=== PATIENT | female | born 1950 | race Caucasian/White ===

== ENCOUNTER 2017-01-11 11:02 | Observation (INO) | payer SELFPAY ==
[2017-01-11] MEDS ORDERED: NS 0.9% 1000 ML* 1,000 ML IV ONE ×2 (11:46→14:31)
[2017-01-11] MEDS ORDERED: Ondansetron INJ* 2 MG/ML VIAL IV ONE ×2 (11:46→14:31)
[2017-01-11] MEDS ORDERED: HYDROmorphone INJ* 2 MG/ML CARPUJECT SYRINGE IV SLOW PU ONE ×2 (11:46→14:31)
[2017-01-11 12:12] LABS: Hematocrit 40 % (35-47); Hemoglobin 13.5 g/dl (12.0-16.0); Mean Corpuscular HGB Conc 34 g/dl (31-36); Mean Corpuscular Hemoglobin 32 pg (27-31); Mean Corpuscular Volume 93 fL (80-97); Mean Platelet Volume 7 um3 (7.4-10.4); Red Blood Count 4.29 10^6/ul (4.0-5.4); Red Cell Distribution Width 13 % (10.5-15); White Blood Count 13.2 10^3/ul (3.5-10.8)
[2017-01-11 12:30] LABS: Albumin 4.3 g/dL (3.2-5.2); BUN/Creatinine Ratio 19.7 (8-20); Calcium 9.8 mg/dL (8.6-10.3); EGFR African American 115.6 (>60); EGFR Non-African American 89.9 (>60); Globulin 2.8 g/dL (2-4); Potassium 3.5 mmol/L (3.5-5.0); Total Protein 7.1 g/dL (6.4-8.9)
[2017-01-11] MEDS ORDERED: Diazepam SYRINGE* 5 MG/ML 10 ML SYRINGE (50 MG total) IV ONE (13:45)
[2017-01-11] MEDS ORDERED: Valproic Acid IV(*) 100 MG/ML 5 ML VIAL (500 MG) IVPB ONE (14:30)
[2017-01-11] MEDS ORDERED: VALPROIC ACID 1000 MG IV - ED ONCE IVPB ONE ×2 (15:00)
--- NOTE | 2017-01-11 15:12 | RAD ---
INDICATION: Headaches COMPARISON: March 08, 2009 TECHNIQUE: Noncontrast axial source images were acquired from the skull base to the vertex. FINDINGS: Ventricles/sulci: The ventricles and cisterns are normal in size and configuration for age. Brain parenchyma: There is no focal parenchymal finding, evidence of intracranial mass, or intracranial mass effect. Intracranial hemorrhage:None. Extra-axial spaces: There are no abnormal extra axial fluid collections or evidence of extra-axial mass. Calvarium: There is no calvarial fracture or other acute calvarial abnormality. There may be a small frontal osteoma. Scalp: There is no evidence of scalp or extracalvarial soft tissue abnormality. Paranasal sinuses/mastoid: The paranasal sinuses and mastoid air cells are clear. Other: None. IMPRESSION: No acute intracranial findings.
--- NOTE | 2017-01-11 15:49 | RAD ---
HISTORY: Low saturation COMPARISONS: March 10, 2009 VIEWS: 1: frontal portable view of the chest at 3:34 PM FINDINGS: LINES AND TUBES: None. CARDIOMEDIASTINAL SILHOUETTE: The cardiomediastinal silhouette is normal for portable technique. PLEURA: The costophrenic angles are sharp. No pleural abnormalities are noted. LUNG PARENCHYMA: The lungs are clear. ABDOMEN: The upper abdomen is clear. There is no subphrenic gas. BONES AND SOFT TISSUES: No bone or soft tissue abnormalities are noted. IMPRESSION: NO ACTIVE CARDIOPULMONARY DISEASE.
[2017-01-11] MEDS ORDERED: Ondansetron INJ* 2 MG/ML VIAL IV PRN (16:38)
[2017-01-11] MEDS ORDERED: Metoclopramide IV* 5 MG/ML 2 ML VIAL IV SLOW PU ONE (16:57)
[2017-01-11] MEDS ORDERED: NS 0.9% w/ 40 Meq KCL 1000 ML* 1,000 ML IV SCH (17:00)
--- NOTE | 2017-01-11 17:18 | ED ---
Jonnie Zavala Alfonso scribed for Lawrence Gibson MD on 01/11/17 at 1200 . Headache - HPI Summary HPI Summary: This patient is a 66 year old F presenting to [facility] accompanied by her family with a chief complaint of a gradually worsening migraine that began yesterday morning when she woke up. She has a 23 year history of migraines with her last one this summer. The patient rates the pain 9/10 in severity. Symptoms aggravated by bright light and recently stress (family illness). Symptoms alleviated by nothing. Has taken Advil and Zofran [employer] with no relief. Patient reports dizziness (resolved), N/V, and dehydration. Patient denies fever, chills , cough, rhinorrhea, rash, and diarrhea. - History Of Current Complaint Chief Complaint: EDHeadache Stated Complaint: VOMITING/HEADACHE Time Seen by Provider: 01/11/17 11:38 Hx Obtained From: Patient Onset/Duration: Gradual Onset - Beginning the previous night, Still Present, Worse Since Initially Headache Was: Moderate Currently Pain Is: Severe Timing: Constant Character: Migraine Aggravating Factor: Bright Lights, Other - Recent stress Allevating Factors: Nothing Associated Signs And Symptoms: Other (Noted In Comments) - dizziness (resolved) , N/V, and dehydration. Patient denies fever, chills, cough, rhinorrhea, rash, and diarrhea. - Allergies/Home Medications Allergies/Adverse Reactions: Allergies Allergy/AdvReac Type Severity Reaction Status Date / Time Prochlorperazine AdvReac See Comment Verified 01/11/17 17:05 [From Compazine] Home Medications: Home Medications Multivitamins/Minerals TAB* [Theragran/minerals TAB*] 1 tab PO DAILY 01/11/17 [ History Confirmed 01/11/17] PMH/Surg Hx/FS Hx/Imm Hx Cardiovascular History: Denies: Hx Coronary Artery Disease, Hx Hypercholesterolemia, Hx Hypertension Neurological History: Reports: Hx Migraine Denies: Hx CVA Infectious Disease History: Yes Infectious Disease History: Denies: Traveled Outside the [place] in Last 30 Days - Family History Known Family History: Positive: Other - Brain tumor and dementia - Social History Occupation: Employed Full-time Alcohol Use: Occasionally Hx Substance Use: No Substance Use Type: Reports: None Hx Tobacco Use: No Smoking Status (MU): Never Smoked Tobacco Review of Systems Constitutional: Other - dehydration Negative: Fever, Chills Negative: Nasal Discharge Negative: Cough Positive: Vomiting, Nausea. Negative: Abdominal Pain, Diarrhea Positive: Other Negative: Rash Neurological: Other - Dizziness (resolved), migraine headache All Other Systems Reviewed And Are Negative: Yes Physical Exam Triage Information Reviewed: Yes Vital Signs On Initial Exam: Initial Vitals Temp Pulse Resp BP Pulse Ox 97.4 F 65 19 134/69 100 01/11/17 11:03 01/11/17 11:03 01/11/17 11:03 01/11/17 11:03 01/11/17 11:03 Vital Signs Reviewed: Yes Appearance: Positive: Ill-Appearing - nauseated Skin: Positive: Warm, Skin Color Reflects Adequate Perfusion Head/Face: Positive: Normal Head/Face Inspection Eyes: Positive: EOMI, BRITTANY ENT: Positive: Normal ENT inspection Neck: Positive: Supple. Negative: Nuchal Rigidity Respiratory/Lung Sounds: Positive: Clear to Auscultation, Breath Sounds Present Cardiovascular: Positive: Normal, RRR. Negative: Murmur Abdomen Description: Positive: Nontender Neurological: Positive: Sensory/Motor Intact, Alert, Oriented to Person Place, Time, CN Intact II-III, Finger to Nose - nml, Speech Normal - Addison Coma Scale Best Eye Response: 4 - Spontaneous Best Motor Response: 6 - Obeys Commands Best Verbal Response: 5 - Oriented Diagnostics - Vital Signs Vital Signs Temp Pulse Resp BP Pulse Ox 01/11/17 11:03 97.4 F 65 19 134/69 100 - Laboratory Result Diagrams: 01/11/17 11:55 01/11/17 11:55 Lab Statement: Any lab studies that have been ordered have been reviewed, and results considered in the medical decision making process. - CT CXR CT Interpretation Completed By: Radiologist - No active cardiopulmonary disease ED physician has reviewed this radiology report and agrees - EKG 15:39 Cardiac Rate: NL EKG Rhythm: Sinus Rhythm - NSR at 72 BPM EKG Interpretation: NML MD, QRS, QT, No STEMI Re-Evaluation - Re-Evaluation First Eval Re-Evaluation Time: 13:15 Change: Improved Comment: She rates the pain 2/10. She is consuming ice chips. She feels much better and wants to go home. Second Eval Re-Evaluation Time: 14:39 Change: Worse Comment: the patient reports 2/10 headache but nausea worse again. Will give depacon, more dilaudid and zofran. hydration. Headache Course/Dx - Course Course Of Treatment: 66 yr old with migraine type headache, intractable nausea and vomiting. Plan to admit to hospitalists and consult by neurology, DR Vasquez pending. - Diagnoses Provider Diagnoses: Status migrainosus - Physician Notifications Discussed Care Of Patient With: Jessica Vasquez Time Discussed With Above Provider: 15:33 Instructed by Provider To: Other - I consulted Dr. Vasquez (Neurologist) who agrees to examine the pt in the ED. Discharge - Discharge Plan Condition: Fair Disposition: ADMITTED TO [facility] Referrals: Senait Medellin MD [Primary Care Provider] - Consult Consult: 15:[address] Redding (Hospitalist) who agreed to admit the pt. The documentation as recorded by the Jonnie liu Alfonso accurately reflects the service I personally performed and the decisions made by me, Lawrence Gibson MD.
[2017-01-11] MEDS ORDERED: diPHENhydraMINE IV* 50 MG/ML 1 ml VIAL (BENADRYL) ONE (19:46)
[2017-01-11] MEDS: diPHENhydraMINE IV* 50 MG in NS 0.9% 50 ML* 50 ML IVPB ONE ×2 (19:59→23:08)
[2017-01-11] MEDS ORDERED: diPHENhydraMINE IV* 50 MG in NS 0.9% 50 ML* 50 ML IVPB ONE (21:00)
[2017-01-11] MEDS: Heparin VIAL(*) 5000 UNITS/ML VIAL (FIVE THOUSAND) SUBCUT SCH (21:19)
--- NOTE | 2017-01-11 21:33 | CONS ---
NEUROLOGY CONSULTATION: DATE OF CONSULT: 01/11/17 LOCATION: The patient is in the emergency department. REQUESTING PHYSICIAN: Dr. Gibson. REASON FOR CONSULT: Migraine headache. HISTORY OF PRESENT ILLNESS: Liv Rowan is a 66-year-old woman with a history of migraines, who is otherwise healthy and takes no prescription medications, who presented to the emergency department today after a migraine, which began 2 nights ago. She has been here visiting her daughter, who is an inpatient for the last week or so, and began having a low-grade headache on Saturday night. Yesterday, she stayed home and could not come to the hospital to visit her daughter because of the headache, which was accompanied by photophobia. She has also had some vertigo on and off with this migraine headache, which is atypical for her migraines. Today, she became nauseated and started vomiting and so they presented to the emergency department for further treatment. She has been taking some ibuprofen and Tylenol at home, which has helped intermittently with the headache but has not made it go away completely. The last time she had a headache like this, she was in [facility] over the summer and required a visit to the hospital at that time as well for treatment. She used to see Dr. Yu several years back for her migraines, but then she started taking a supplement called Protandim, which she indicates significantly improved her migraines to the point where she gets them rarely now. However, she has been under stress with her daughter being hospitalized and probably has not been drinking as much as usual and feels this is likely the reason for this migraine. Dr. Gibson gave her Dilaudid 1 mg x2 as well as Zofran, first 8 mg and then 4 mg. She has also received Valium 2 mg in addition to 2 L of normal saline and then 1000 mg load of valproic acid. She now reports that her headache is a 2/10 but the nausea is still debilitating and she continues to have dry heaves. She reports that Toradol in the past has cause increased nausea and she had a dystonic reaction when given COMPAZINE in the past. PAST MEDICAL HISTORY: Migraine headaches. HOME MEDICATIONS: 1. Multivitamin. 2. Protandim supplement. 3. Vitamin D. 4. Vitamin B. ALLERGIES: COMPAZINE causes dystonic reaction. FAMILY HISTORY: There is a family history of stroke and diabetes. SOCIAL HISTORY: She lives in [place]. She is a nonsmoker. She has 2 adopted daughters. REVIEW OF SYSTEMS: She denies any recent fevers, coughs, new joint pains, skin rashes, change in bowel habits. PHYSICAL EXAM: Vital Signs: Temperature 97.4, blood pressure 134/64, heart rate 69, and oxygen saturation is 98% on room air when I was in the room. They did tell me that on several occasions, she had gone down into the 70s when she would begin to fall asleep, but with encouragement taking deep breaths, she would come back up into the normal range and a chest x-ray was negative. On general examination, she is lying in a dark room with her sunglasses on and appears uncomfortable. Her heart is in regular rate and rhythm with no murmurs , rubs, or gallops. Lungs are clear to auscultation bilaterally. There are no carotid bruits. Her skin is intact. There is no joint swelling or erythema. On neurologic examination, she appears tired but fully oriented. Her speech is fluent without dysarthria or aphasia. Cranial nerve testing: Pupils are equal , round and reactive but miotic from 2 to 1.5 mm bilaterally. Her versions are full without nystagmus. Cuello are full to confrontation bilaterally. Facial sensation and musculature is full and symmetric. Hearing is intact to voice. The palate elevates symmetrically and the tongue is midline. On motor examination, she has normal strength proximally and distally in the upper and lower extremities with no pronator drift. Sensation is intact to light touch. I was unable to complete the remainder of the neurologic exam as with these maneuvers, she became acutely nauseated and began to dry heave. DIAGNOSTIC STUDIES/LAB DATA: Her CBC shows an elevated white count of 13.2 with 90% neutrophils and otherwise overall unremarkable. Her coagulation studies are normal. Her CMP was normal aside from a nonfasting glucose of 123. Noncontrast brain CT was obtained and personally reviewed and was unremarkable. IMPRESSION AND PLAN: Liv Rowan is a 66-year-old woman with a history of episodic migraine headaches, who presents with a 2-plus day migraine associated with photophobia, nausea, and vomiting. Her pain is under relatively good control at this point, but she continues to have significant nausea and dry heaving. Although she reports an allergy to COMPAZINE, this does not preclude the use of metoclopramide and I contacted Dr. Roy, who has admitted her on observation status and advised to order 10 mg of IV metoclopramide as well as IV diphenhydramine to try to get her nausea under control. If this is not effective, then she can have another dose of Zofran. I would not use Toradol at this point because her headache is under relatively good control and she reports increased nausea with this medication. If you need further assistance from Neurology, Dr. Joseph Devi, is taking over the service [facility] and will care about the patient as well. [id number]/[facility] #: [id number] MTDD
[2017-01-12] MEDS: Acetaminophen TAB* 325 MG PO PRN ×2 (00:09→10:27)
[2017-01-12 00:28] LABS: Urine Bilirubin Negative (Negative); Urine Glucose 1+(50 mg/dL) (Negative); Urine Nitrite Negative (Negative)
--- NOTE | 2017-01-12 02:00 | HP ---
CC: Dr. Sherri Isbell at [facility], phone number [phone] [facility] HISTORY AND PHYSICAL: DATE OF ADMISSION: 01/11/17 TIME OF EVALUATION: 04:30 p.m. PRIMARY CARE PROVIDER: Dr. Sherri Isbell. CHIEF COMPLAINT: Headache. HISTORY OF PRESENT ILLNESS: Ms. Rowan is a 66-year-old lady with a past medical history of migrai rylie, who presented to the emergency room with complaints of headache, nausea, and vomiting. The patient states that in the past she used to have frequent episodes of migraine, but these are spo radic now and usually associated with a trip or another stressful situation. She had 1 episode in [facility] when she traveled to [facility] and this is the second time she has migraine this year. She is vis iting her daughter. She lives in [place] and just came to [place] 3 days ago to visit her daughter. She states that the pain is frontal, radiating to the back of her head, was a 9/10 intensity, and was associated with nausea and vomiting. She did not bring any of her medications with her at this time . So, she came to the emergency room for further treatment. She denies fever, chills. The headache is associated with photophobia and during our interview the patient requested to keep the lights in the room off. PAST MEDICAL HISTORY: Migraines. PAST SURGICAL HISTORY: 1. The patient had hemorrhagic ovarian cyst surgery. 2. Lysis of adhesions. MEDICATION LIST: She takes only [id number] vitamins as outpatient. ALLERGIES: With COMPAZINE the patient had dystonic reaction. FAMILY HISTORY: The patient's father of a brain tumor at age 42. SOCIAL HISTORY: No history of tobacco, alcohol or drug use. REVIEW OF SYSTEMS: A 14-point review of systems was performed and all other pertinent negatives and positives findings are in the HPI. PHYSICAL EXAMINATION GENERAL: The patient is a pleasant lady, lying in the ED stretcher in no acute distress. She is wea ring sunglasses in a dark room. VITAL SIGNS: Temperature 97.4, heart rate is 74, respiratory rate is 18, oxygen saturation is 95% on room air, blood pressure is 134/64. CVS: Normal S1, S2. Regular rate and rhythm. CHEST: Breath sounds present bilaterally with no added sounds. ABDOMEN: Soft. Bowel sounds are present. EXTREMITIES: No edema. NEURO: She is alert and oriented x3. Speech is normal. There are no focal neuro deficits. LABORATORY AND IMAGING DATA: The patient had a CBC with WBC of 13.2, hemoglobin of 13.5, hematocrit of 40, platelets of 295 and 96% neutrophils. INR is 0.92. D- dimer was less than 200. Chemistry s howed a sodium of 148, potassium 3.5, chloride of 105, bicarbonate of 26, BUN of 13, creatinine of 0. 6, glucose of 123, calcium 9.8. LFTs are normal. CT of the brain without contrast showed no acute intracranial findings. Chest x-ray, no active cardiopulmonary disease. EKG done on 01/11/17 at 15:39 showed sinus rhythm at 72 beats per minute with no ST-T changes. No significant change when compared to her prior EKG from 2009. ASSESSMENT AND PLAN: Ms. Rowan is a 66-year-old lady with a past medical history of migraines pavithra t presents to the emergency room with an episode of intractable migraine. 1. Intractable migraine. The patient is still symptomatic after spending more than 5 hours in the e mergency room. So, she will be admitted to the medical floor to the CDU unit. Her pain is down to a 2/10 at this time, but she still has significant nausea. She was seen in consultation by Neurology ( Dr. Vasquez) and she recommended symptomatic treatment with Benadryl and Reglan. The plan is for the vipul montez to probably be discharged home in the morning when her symptoms are better controlled. 2. DVT prophylaxis: The patient has a score of 2 on the DVT prophylaxis assessment guide and she wi ll be started on subcutaneous heparin. 3. Code status is full. TIME SPENT: Approximately 50 minutes were spent with the patient interview, medical records review, physical examination to complete this admission; more than half of this time was spent [id number] w ith the patient and coordination of care. [id number]/[facility] #: [id number]
[2017-01-12] MEDS: Heparin VIAL(*) 5000 UNITS/ML VIAL (FIVE THOUSAND) SUBCUT SCH (05:56)
[2017-01-12 12:00] VITALS: BP 118/60
--- NOTE | 2017-01-13 06:14 | DS ---
CC: Dr. Sherri Isbell, [facility], phone number [phone]; Dr. Vasquez * DISCHARGE SUMMARY: DATE OF ADMISSION: 01/11/17 DATE OF DISCHARGE: 01/12/17 PRIMARY CARE PHYSICIAN: The patient's primary care physician is not local. The patient is visiting from [place]. The patient's primary care provider is Dr. Sherri Isbell. DISCHARGE DIAGNOSIS: Intractable migraine. SECONDARY DIAGNOSES: 1. History of migraines. 2. History of hemorrhagic ovarian cyst surgery and history of adhesions. MEDICATIONS AT HOME: Include: 1. Tylenol on p.r.n. basis. 2. Ibuprofen on a p.r.n. basis. 3. The patient also was prescribed oxycodone 5 mg every 6 hours p.r.n. for a total of 10 tablets. I-STOP was checked. The patient had not had any recent controlled substances prescribed. LABORATORY DATA: Unchanged from admission. CONSULTANTS DURING THE HOSPITAL STAY: Included Dr. Vasquez from Neurology. HOSPITALIZATION COURSE: Liv Rowan is a 66-year-old female with history of migraines in the past, on amitriptyline, who came in from [place] to see her daughter, who is recuperating in the hospital. The patient developed migraine with photophobia and she came in to the ED for evaluation. Here, she was placed on overnight observation. She received 1000 mg of IV Depakote as well as Reglan and Zofran for nausea. She also received several doses of Dilaudid. Dr. Vasquez saw the patient in consultation and noted this patient's headache was already resolving. The patient is to follow up with her primary care provider and/or neurologist in [place] for further management of her migraines and possibility of a prescription of migraine prophylaxis, maybe restarting amitriptyline. On the day of discharge, the patient has minimal "twinge of headache" in the left forehead, 2/10. Otherwise, she is neurologically intact. She is to follow up with her primary care provider at [place]. She is planning to fly out tomorrow. PHYSICAL EXAMINATION: At the time of discharge, blood pressure of 114/62, heart rate of 73 and regular, respiratory rate 16, oxygen saturation 97% on room air, temperature 98.0. General: The patient is a very pleasant 66-year- old female, who is in no acute distress. Alert, awake, and oriented x3. HEENT : Head: Atraumatic and normocephalic. Eyes: Pupils are equal, reactive to light and accommodation. Oropharynx is clear. Mucosa moist. Neck: Supple. No JVD. No bruits bilaterally. Cardiovascular: Regular rate and rhythm. No murmur. Respiratory: Clear to auscultation bilaterally. Abdomen: Soft, nontender. Bowel sounds are present in all 4 quadrants. Lower Extremities: There is no edema. Pulses are +2 bilaterally. There is no clubbing or cyanosis. Neuro Evaluation: Speech is clear. Cranial nerves II through XII were grossly intact. Motor strength is 5/5 bilaterally. Please note that this is a short summary of the patient's hospital stay. Please refer to further medical records for details. [id number]/[facility] #: [id number] MTDD
== END 2017-01-12 13:20 | disposition home or self-care (01) ==
LOC: ED 11:02 → MED 16:00
PROVIDERS: ADMIT Internal Medicine; ATTEND Internal Medicine
DX: G43.919 Migraine, unspecified, intractable, without status migrainosus (principal); Z88.8 Allergy status to other drugs, medicaments and biological substances; R11.2 Nausea with vomiting, unspecified; Z79.899 Other long term (current) drug therapy
CPT/HCPCS: 36415; 70450; 71010; 80053; 81003; 83690; 85025; 85379; 85610; 93005; 96365; 96366; 96375; 96376; 99284; A9270-GY; G0378; J1170; J1200; J1644; J2405; J3360